=== PATIENT | female | born 1995 | race Caucasian/White ===

== ENCOUNTER 2019-02-23 10:24 | Emergency (ER) | payer SELFPAY ==
[2019-02-23] MEDS ORDERED: KETOROLAC 30 MG/ML INJ ONE (12:08)
[2019-02-23] MEDS ORDERED: ONDANSETRON 4 MG/2 ML VIAL ONE (12:08)
[2019-02-23] MEDS ORDERED: NA CHLORIDE 0.9% 1,000 ML ONE ×2 (12:08→13:41)
[2019-02-23 12:19] LABS: Hematocrit 39.4 % (36.0-45.0); RBC Red Blood Cell Count 4.46 M/uL (3.86-4.86)
[2019-02-23 12:20] LABS: Absolute Lymphocytes (CBC) 1.3 K/uL (0.7-4.9); Basophils % 0.4 % (0-1.3); Lymphocytes % 8.9 % (15.3-44.8); MPV 8.4 fL (7.6-11.3)
[2019-02-23 12:43] LABS: ALT/SGPT 20 U/L (12-78); AST/SGOT 20 U/L (15-37); Albumin 4.1 g/dL (3.4-5.0); Alkaline Phosphatase 77 U/L (45-117); BUN Blood Urea Nitrogen 8 mg/dL (7-18); Bicarbonate 22 mmol/L (21-32); Bilirubin Direct 0.1 mg/dL (0-0.2); Bilirubin Total 0.6 mg/dL (0.2-1.0); Glucose Level 95 mg/dL (74-106); Lipase 75 U/L (73-393); Potassium 3.5 mmol/L (3.5-5.1); Sodium Level 139 mmol/L (136-145)
--- NOTE | 2019-02-23 12:50 | RAD REPORT ---
EXAM DESCRIPTION: US - Transvaginal Study Probe - 02/23/2019 12:36 pm CLINICAL HISTORY: ABD PAIN Pelvic pain. COMPARISON: No comparisons FINDINGS: The uterus is normal in size, shape and echotexture. The uterus measures 7.6 x 4.4 x 3.4 c m. The endometrial stripe measures 8 mm, normal. Both ovaries are normal in size, shape and echotexture. The right ovary measures 3.3 x 2.7 x 2.0 cm. The left ovary measures 2.8 x 2.8 x 1.7 cm. No ovarian or parovarian lesions. No adnexal masses. Normal Doppler blood flow was demonstrated to both ovaries. No significant pelvic ascites. IMPRESSION: Unremarkable study.
[2019-02-23 12:56] LABS: Urine Bacteria NONE SEEN /HPF (<20); Urine Culture Reflex Order NOT NEEDED; Urine RBC NONE SEEN /HPF (NONE SEEN)
[2019-02-23 13:37] LABS: Urine Blood NEGATIVE (NEG); Urine Glucose NEGATIVE (NEG); Urine Protein TRACE (NEG)
--- NOTE | 2019-02-23 14:35 | RAD REPORT ---
EXAM DESCRIPTION: CT - Abdomen Pelvis W Contrast - 02/23/2019 2:14 pm CLINICAL HISTORY: lower abdomen pain COMPARISON: Pelvic ultrasound February 23. TECHNIQUE: Biphasic, helical CT imaging of the abdomen and pelvis was performed following 100 ml non -ionic IV contrast. Oral contrast was given. All CT scans are performed using dose optimization technique as appropriate and may include automated exposure control or mA/KV adjustment according to patient size. FINDINGS: No suspicious findings in the lung bases. The liver, spleen, and pancreas show no suspicious findings. Gallbladder and biliary tree are also wi thout suspicious finding. Symmetric renal function is seen with no hydronephrosis or suspicious renal mass. No pyelonephritis o r acute parenchymal process. No bladder abnormalities. No adrenal abnormalities. No dilated bowel loops or bowel wall thickening. Contrast extends into a normal diameter appendix. No free air or pneumatosis. A small amount of free fluid collects in the right posterior dependent port ion of the pelvis. Quantity is not outside of physiologic limits. Fluid has relatively high density b ut is still likely reactive fluid. Earlier ultrasound showed no ruptured or involuting cyst. Ovarian cyst etiology is still possible. This is not likely significant finding in the absence of any additio nal finding. No hernia, mass or bulky lymphadenopathy. No acute bone finding. L5 pars defects are present. IMPRESSION: Contrast enhanced CT abdomen and pelvis showing no significant or suspicious finding. Minimal free fluid in the pelvis is most likely reactive. Fluid from a leaking or ruptured ovarian cy st would be possible though no abnormal cyst seen on earlier ultrasound.
[2019-02-23] MEDS ORDERED: CEFTRIAXONE/SWI 1gm 1 GM/10 ML SYR ONE (15:11)
--- NOTE | 2019-02-23 15:11 | EDPHYS ---
Physician Documentation [facility] Name: Liseth Chow Age: 23 yrs Sex: Female : 1995 Arrival Date: 02/23/2019 Time: 10:27 Bed 15 Private MD: ED Physician Quentin Valentine HPI: 02/23 11:50 This 23 yrs old Female presents to ER via Ambulatory with complaints of cp Abdominal Pain. 11:50 The patient presents with abdominal pain in the lower abdomen, pelvic area. cp 11:50 Onset: The symptoms/episode began/occurred this morning. cp 11:50 The symptoms do not radiate. Associated signs and symptoms: Pertinent positives: nausea.cp 11:50 Severity of pain: in the emergency department the pain is unchanged despite home cp interventions. [employer]: 11:27 LMP 02/08/2019 aa5 Historical: - Allergies: 11:27 No Known Allergies; aa5 - PMHx: 11:27 Ovarian cyst; aa5 - PSHx: 11:27 None; aa5 - Immunization history:: Adult Immunizations up to date. - Social history:: Smoking status: Patient/guardian denies using tobacco. - Ebola Screening: : No symptoms or risks identified at this time. ROS: 12:00 Constitutional: Negative for body aches, chills, fever, poor PO intake. cp 12:00 Eyes: Negative for injury, pain, redness, and discharge. cp 12:00 ENT: Negative for drainage from ear(s), ear pain, sore throat, difficulty swallowing, difficulty handling secretions. 12:00 Cardiovascular: Negative for chest pain, palpitations. 12:00 Respiratory: Negative for cough, shortness of breath, wheezing. 12:00 Abdomen/GI: Positive for nausea, diarrhea, Negative for abdominal pain, vomiting, constipation, black/tarry stool, rectal bleeding. 12:00 Back: Negative for radiated pain. 12:00 : Positive for pelvic pain. 12:00 Skin: Negative for rash. 12:00 Neuro: Negative for altered mental status, dizziness, headache, weakness. 12:00 All other systems are negative. Exam: 14:30 Constitutional: The patient appears in no acute distress, alert, awake, non-toxic, well cp developed, well nourished. 14:30 Head/Face: Normocephalic, atraumatic. cp 14:30 Eyes: Periorbital structures: appear normal, Conjunctiva: normal, no exudate, no injection, Sclera: no appreciated abnormality, Lids and lashes: appear normal, bilaterally. 14:30 ENT: External ear(s): are unremarkable, Nose: is normal, Mouth: Lips: moist, Oral mucosa: pink and intact, moist, Posterior pharynx: is normal, airway is patent, no erythema, no exudate. 14:30 Chest/axilla: Inspection: normal, Palpation: is normal, no crepitus, no tenderness. 14:30 Cardiovascular: Rate: normal, Rhythm: regular. 14:30 Respiratory: the patient does not display signs of respiratory distress, Respirations: normal, no use of accessory muscles, no retractions, no splinting, no tachypnea, labored breathing, is not present, Breath sounds: are clear throughout, no decreased breath sounds, no stridor, no wheezing. 14:30 Abdomen/GI: Inspection: abdomen appears normal, Bowel sounds: active, all quadrants, Palpation: soft, in all quadrants, moderate abdominal tenderness, in the bilateral lower abdomen/adnexal area, rebound tenderness, is not appreciated, voluntary guarding, is elicited in the left lower abdomen/adnexal area. 14:30 Back: CVA tenderness, is absent. 14:30 : Pelvic Exam: Speculum exam: no bleeding is noted, os that is closed, bimanual exam reveals cervical motion tenderness, left adnexal tenderness, no adnexal mass on right, no adnexal mass on left, discharge, white, the nurse was present for the exam, Sexual behavior: the patient is sexually active. 14:30 Skin: no rash present. Vital Signs: 11:28 BP 135 / 82; Pulse 94; Resp 18 S; Temp 98.2(O); Pulse Ox 100% on R/A; Weight 61.23 kg aa5 (R); Height 5 ft. 1 in. (154.94 cm) (R); Pain 5/10; 13:11 Pulse 88; Resp 18; Pulse Ox 100% on R/A; Pain 2/10; mg2 14:16 BP 119 / 77; Pulse 75; Resp 18; Pulse Ox 100% on R/A; mg2 14:33 BP 118 / 77; Pulse 76; Resp 18; Pulse Ox 100% on R/A; mg2 11:28 Body Mass Index 25.51 (61.23 kg, 154.94 cm) aa5 MDM: 11:35 Patient medically screened. cp 12:00 Differential diagnosis: Ectopic , non-specific abd pain, Ovarian Torsion, cp Pelvic Inflammatory Disease, Tubal Ovarian Abcess, Ureterolithiasis, urinary tract infection. 15:24 Data reviewed: vital signs, nurses notes, lab test result(s), radiologic studies, CT cp scan, ultrasound, and as a result, I will discharge patient. 15:24 Counseling: I had a detailed discussion with the patient and/or guardian regarding: the cp historical points, exam findings, and any diagnostic results supporting the discharge/admit diagnosis, lab results, radiology results, the need for outpatient follow up, an OB/Gyne specialist, to return to the emergency department if symptoms worsen or persist or if there are any questions or concerns that arise at home. Response to treatment: the patient's symptoms have markedly improved after treatment, and as a result, I will discharge patient. 02/23 11:46 Order name: Basic Metabolic Panel; Complete Time: 13:01 02/23 11:46 Order name: CBC with Diff; Complete Time: 12:32 02/23 12:33 Interpretation: Normal except: WBC 14.3; RDW 15.4; MARY JO% 85.0; LYM% 8.9; NEUT A 12.1. 02/23 11:46 Order name: Creatinine for Radiology 02/23 11:46 Order name: Hepatic Function; Complete Time: 13:01 02/23 13:02 Interpretation: Normal except: GLOB 3.9. 02/23 11:46 Order name: Lipase; Complete Time: 13:01 cp 02/23 11:46 Order name: Urine Microscopic Only; Complete Time: 13:01 02/23 11:46 Order name: US Transvaginal Study (Probe) 02/23 12:33 Order name: CT Abd/Pelvis - PO and IV Contrast 02/23 12:46 Order name: Urine Dipstick--Ancillary (enter results); Complete Time: 15:03 em1 02/23 15:03 Interpretation: Normal except: UKET 4+. 02/23 12:46 Order name: Urine --Ancillary (enter results); Complete Time: 15:03 em1 02/23 14:46 Order name: GC (GONORR/CHLAMYDIA) Probe cp 02/23 14:46 Order name: Wet Prep cp 02/23 15:23 Order name: US EDMS 02/23 11:46 Order name: IV Saline Lock; Complete Time: 12:28 cp 02/23 11:46 Order name: Labs collected and sent; Complete Time: 12:28 cp 02/23 11:46 Order name: Urine Test (obtain specimen); Complete Time: 12:43 cp Administered Medications: 12:52 Drug: Zofran 4 mg Route: IVP; Site: right antecubital; mg2 14:39 Follow up: Response: No adverse reaction; Marked relief of symptoms mg2 12:52 Drug: TORadol 30 mg Route: IVP; Site: right antecubital; mg2 14:38 Follow up: Response: No adverse reaction; Marked relief of symptoms mg2 12:53 Drug: NS 0.9% 1000 ml Route: IV; Rate: 1 bolus; Site: right antecubital; mg2 14:39 Follow up: Response: No adverse reaction; IV Status: Completed infusion; IV Intake: mg2 1000ml 14:39 Drug: NS 0.9% 1000 ml Route: IV; Rate: 125 ml/hr; Site: right antecubital; mg2 15:32 Follow up: Response: No adverse reaction; IV Status: Order to discontinue infusion; IV mg2 Intake: 100ml 15:16 Drug: Rocephin - (cefTRIAXone) 1 grams Route: IVPB; Infused Over: 30 mins; Site: right mg2 antecubital; 15:31 Follow up: Response: No adverse reaction; IV Status: Completed infusion mg2 Disposition: 16:19 Co-signature as Attending Physician, Quentin Valentine MD. rn Disposition: 02/23/19 15:24 Discharged to Home. Impression: Abdominal and pelvic pain. - Condition is Stable. - Discharge Instructions: Abdominal Pain, Adult, Pelvic Pain, Female. - Prescriptions for Ibuprofen 800 mg Oral Tablet - take 1 tablet by ORAL route every 8 hours As needed take with food; 30 tablet. Doxycycline Hyclate 100 mg Oral Tablet - take 1 tablet by ORAL route every 12 hours; 20 tablet. Metronidazole 500 mg Oral Tablet - take 1 tablet by ORAL route every 8 hours; 30 tablet. - Medication Reconciliation Form, Thank You Letter, Antibiotic Education, Prescription Opioid Use, Work release form form. - Follow up: Ej Mckeon MD; When: 2 - 3 days; Reason: Worsening of condition. - Problem is new. - Symptoms have improved. Signatures: Dispatcher [employer] EDQuentin Kim MD MD rn Calderon, Audri, RN RN aa5 Chan Billings PA PA cp Herrera Massey RN RN mg2 Corrections: (The following items were deleted from the chart) 15:13 15:10 02/23/2019 15:10 Discharged to Home. Impression: Abdominal and pelvic pain. cp Condition is Stable. Forms are Medication Reconciliation Form, Thank You Letter, Antibiotic Education, Prescription Opioid Use. Follow up: Ej Mckeon; When: 2 - 3 days; Reason: Worsening of condition. Problem is new. Symptoms have improved. cp 15:53 15:24 02/23/2019 15:24 Discharged to Home. Impression: Abdominal and pelvic pain. mg2 Condition is Stable. Prescriptions for Ibuprofen 800 mg Oral Tablet - take 1 tablet by ORAL route every 8 hours As needed take with food; 30 tablet, Doxycycline Hyclate 100 mg Oral Tablet - take 1 tablet by ORAL route every 12 hours; 20 tablet, Metronidazole 500 mg Oral Tablet - take 1 tablet by ORAL route every 8 hours; 30 tablet. and Forms are Medication Reconciliation Form, Thank You Letter, Antibiotic Education, Prescription Opioid Use. Follow up: Ej Mckeon; When: 2 - 3 days; Reason: Worsening of condition. Problem is new. Symptoms have improved. cp
--- NOTE | 2019-02-23 15:11 | ER ---
Nurse's Notes [facility] Name: Liseth Chow Age: 23 yrs Sex: Female : 1995 Arrival Date: 02/23/2019 Time: 10:27 Bed 15 Private MD: Diagnosis: Abdominal and pelvic pain Presentation: 02/23 11:25 Presenting complaint: Patient states: lower abd pain that began this morning. Pt aa5 reports nausea,denies vomiting, denies diarrhea. Transition of care: patient was not received from another setting of care. Onset of symptoms was February 2019. Risk Assessment: Do you want to hurt yourself or someone else? Patient reports no desire to harm self or others. Initial Sepsis Screen: Does the patient meet any 2 criteria? No. Patient's initial sepsis screen is negative. Does the patient have a suspected source of infection? No. Patient's initial sepsis screen is negative. Care prior to arrival: None. 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 - Social history:: Smoking status: Patient/guardian denies using tobacco. - Ebola Screening: : No symptoms or risks identified at this time. Screenin:30 Abuse screen: Denies threats or abuse. Nutritional screening: No deficits noted. tw2 Tuberculosis screening: No symptoms or risk factors identified. Fall Risk None identified. Assessment: 11:36 General: Appears uncomfortable. tw2 11:39 General: Behavior is crying. Pain: Complains of pain in left femoral area and left tw2 inguinal area. Neuro: Level of Consciousness is awake, alert, obeys commands, Oriented to person, place, time, situation. Cardiovascular: Heart tones S1 S2 Patient's skin is warm and dry. Respiratory: Airway is patent. Respiratory: Breath sounds are clear bilaterally. GI: Abdomen is flat, Bowel sounds present X 4 quads. Abd is soft X 4 quads Reports diarrhea, nausea, Patient currently denies vomiting. : No signs and/or symptoms were reported regarding the genitourinary system. EENT: No signs and/or symptoms were reported regarding the EENT system. Derm: No signs and/or symptoms reported regarding the dermatologic system. Musculoskeletal: Range of motion: intact in all extremities. 13:10 Reassessment: patient informed about the plan for pelvic exam. she agreed. mg2 14:12 Reassessment: patient sent to ct scan. mg2 Vital Signs: 11:28 BP 135 / 82; Pulse 94; Resp 18 S; Temp 98.2(O); Pulse Ox 100% on R/A; Weight 61.23 kg aa5 (R); Height 5 ft. 1 in. (154.94 cm) (R); Pain 5/10; 13:11 Pulse 88; Resp 18; Pulse Ox 100% on R/A; Pain 2/10; mg2 14:16 BP 119 / 77; Pulse 75; Resp 18; Pulse Ox 100% on R/A; mg2 14:33 BP 118 / 77; Pulse 76; Resp 18; Pulse Ox 100% on R/A; mg2 11:28 Body Mass Index 25.51 (61.23 kg, 154.94 cm) aa5 ED Course: 10:27 Patient arrived in ED. mr 11:25 Arm band placed on. aa5 11:27 Triage completed. aa5 11:30 Citlaly Low RN is Primary Nurse. tw2 11:31 Bed in low position. Call light in reach. Pulse ox on. NIBP on. tw2 11:34 Chan Billings PA is PHCP. cp 11:34 Quentin Valentine MD is Attending Physician. cp 12:04 Report given to BRENNAN lynn. tw2 12:15 Inserted saline lock: 20 gauge in right antecubital area, using aseptic technique. mg2 Blood collected. 14:27 CT Abd/Pelvis - PO and IV Contrast In Process Unspecified. EDMS 14:33 Assist provider with pelvic exam: Set up pelvic tray. Performed by Chan BARILLAS mg2 Patient tolerated well. 15:06 Ej Mckeon MD is Referral Physician. cp 15:23 Ej Mckeon MD is Referral Physician. cp 15:50 IV discontinued, intact, bleeding controlled, No redness/swelling at site. Pressure mg2 dressing applied. Administered Medications: 12:52 Drug: Zofran 4 mg Route: IVP; Site: right antecubital; mg2 14:39 Follow up: Response: No adverse reaction; Marked relief of symptoms mg2 12:52 Drug: TORadol 30 mg Route: IVP; Site: right antecubital; mg2 14:38 Follow up: Response: No adverse reaction; Marked relief of symptoms mg2 12:53 Drug: NS 0.9% 1000 ml Route: IV; Rate: 1 bolus; Site: right antecubital; mg2 14:39 Follow up: Response: No adverse reaction; IV Status: Completed infusion; IV Intake: mg2 1000ml 14:39 Drug: NS 0.9% 1000 ml Route: IV; Rate: 125 ml/hr; Site: right antecubital; mg2 15:32 Follow up: Response: No adverse reaction; IV Status: Order to discontinue infusion; IV mg2 Intake: 100ml 15:16 Drug: Rocephin - (cefTRIAXone) 1 grams Route: IVPB; Infused Over: 30 mins; Site: right mg2 antecubital; 15:31 Follow up: Response: No adverse reaction; IV Status: Completed infusion mg2 Intake: 14:39 IV: 1000ml; Total: 1000ml. mg2 15:32 IV: 100ml; Total: 1100ml. mg2 Outcome: 15:10 Discharge ordered by MD. cp 15:24 Discharge ordered by MD. cp 15:50 Discharged to home ambulatory, with family. mg2 15:50 Condition: stable 15:50 Discharge instructions given to patient, family, Instructed on discharge instructions, follow up and referral plans. medication usage, Demonstrated understanding of instructions, follow-up care, medications, Prescriptions given X 3. 15:53 Patient left the ED. mg2 Signatures: Dispatcher [employer] Melody Rae PatrickAsuncion RN RN aa5 Chan Billings PA PA Citlaly Emmanuel RN RN tw2 Herrera Massey RN RN mg2 Corrections: (The following items were deleted from the chart) 11:40 11:36 General: Appears uncomfortable, tw2 tw2
[2019-02-26 16:20] LABS: C.trachomatis RNA,TMA Detected (Not Detected)
== END 2019-02-23 15:53 | disposition home or self-care (01) ==
LOC: ER 10:24
DX: R10.2 Pelvic and perineal pain (principal)
CPT/HCPCS: 36415; 74177; 76830; 80048; 80076; 81003; 81015; 81025; 83690; 85025; 87210; 87490; 87590; 96361; 96374; 96375; 99284; J0696; J2405; J7030; Q9967

== ENCOUNTER 2019-02-24 19:54 | Emergency (ER) | payer SELFPAY ==
--- OUTSIDE RECORDS SUMMARY | 2019-02-24 19:57 | XMS REPORT | Clinical Summary ---
:1995 Author Organization [facility] Address [address] [place] [address] Care Team Providers Name Role Phone Unavailable Primary Care Provider Unavailable Allergies No Known Allergies Medications No known medications Active Problems Not on file Social History Tobacco Use Types Packs/Day Years Used Date Never Smoker Alcohol Use Drinks/Week oz/Week Comments No Sex Assigned at Date Recorded Not on file Job Start Date Occupation Industry Not on file Not on file Not on file Travel History Travel Start Travel End No recent travel history available. 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
--- OUTSIDE RECORDS SUMMARY | 2019-02-24 19:57 | XMS REPORT | Summary of Care ---
:1995 Author Organization [facility] Address [address] [place] [address]- Encounter HQ Dankntr_teresa(FIN) [id number] Date(s): 01/04/17 - 01/04/[address] Professional Services provided by The [facility] [place] [address]- Discharge Diagnosis: Acute depression Discharge Diagnosis: Suicidal ideation Discharge Disposition: DC/TF To Psych Hosp Attending Physician: Buddy Rollins MD Vital Signs Most recent to oldest 1 2 3 [Reference Range]: Height 154.94 cm (01/04/17 4:25 AM) Temperature Oral [96.4-99.1 98.2 DegF 98.0 DegF DegF] (01/04/17 2:24 PM) (01/04/17 4:25 AM) Blood Pressure [90-140/60-90 111/56 mmHg 97/52 mmHg 99/46 mmHg mmHg] (01/04/17 2:24 PM) (01/04/17 11:44 AM) (01/04/17 10:08 AM) Respiratory Rate [14-20 16 BRMIN 18 BRMIN 18 BRMIN BRMIN] (01/04/17 2:24 PM) (01/04/17 11:44 AM) (01/04/17 10:08 AM) Peripheral Pulse Rate [60-100 98 bpm 76 bpm 88 bpm bpm] (01/04/17 2:24 PM) (01/04/17 11:44 AM) (01/04/17 10:08 AM) Weight 59.091 kg (01/04/17 4:25 AM) Body Mass Index 24.61 m2 (01/04/17 4:25 AM) Problem List Condition Effective Dates Status Health Status Informant Suicide attempt(Confirmed) Active Allergies, Adverse Reactions, Alerts Substance Reaction Severity Status NKDA Active Medications Sodium Chloride 0.9% (Bolus) IV 1,000 mL, 1000 ml/hr, Infuse Over: 1 hr, Route: IV, 1,000, Drug form: INJ, ONCE , Priority: STAT, Dosing Weight 59.091 kg, Start date: 01/04/17 5:22:00 CDT, Duration: 1 doses or times, Stop date: 01/04/17 5:22:00 CDT Start Date: 01/04/17 Stop Date: 01/04/17 Status: Completed Results ELECTROLYTES Most recent to oldest [Reference Range]: 1 Sodium Lvl [135-145 mEq/L] 145 mEq/L (01/04/17 5:50 AM) Potassium Lvl [3.5-5.1 mEq/L] 3.7 mEq/L (01/04/17 5:50 AM) Chloride Lvl [95-109 mEq/L] 110 mEq/L *HI* (01/04/17 5:50 AM) CO2 [24-32 mEq/L] 22 mEq/L *LOW* (01/04/17 5:50 AM) AGAP [10.0-20.0 mEq/L] 16.7 mEq/L (01/04/17 5:50 AM) CHEM PANEL Most recent to oldest [Reference Range]: 1 Creatinine Lvl [0.50-1.40 mg/dL] 0.67 mg/dL (01/04/17 5:50 AM) eGFR 126 mL/min/1.73m2 1 *NA* (01/04/17 5:50 AM) BUN [7-22 mg/dL] 7 mg/dL (01/04/17 5:50 AM) Glucose Lvl [70-99 mg/dL] 97 mg/dL (01/04/17 5:50 AM) Total Protein [6.4-8.4 g/dL] 7.6 g/dL (01/04/17 5:50 AM) Albumin Lvl [3.5-5.0 g/dL] 4.3 g/dL (01/04/17 5:50 AM) Globulin [2.7-4.2 g/dL] 3.3 g/dL (01/04/17 5:50 AM) A/G Ratio [0.7-1.6] 1.3 (01/04/17 5:50 AM) Calcium Lvl [8.5-10.5 mg/dL] 8.7 mg/dL (01/04/17 5:50 AM) ALT [0-65 unit/L] 23 unit/L (01/04/17 5:50 AM) AST [0-37 unit/L] 21 unit/L (01/04/17 5:50 AM) Alk Phos [39-136 unit/L] 72 unit/L (01/04/17 5:50 AM) Bili Total [0.2-1.3 mg/dL] 0.2 mg/dL (01/04/17 5:50 AM) Bili Direct [0.0-0.3 mg/dL] 0.1 mg/dL (01/04/17 5:50 AM) Bili Indirect [0.0-1.0 mg/dL] 0.1 mg/dL (01/04/17 5:50 AM) 1Result Comment: The eGFR is calculated using the CKD-EPI formula. In most young , healthy individualsthe eGFR will be >90 mL/min/1.73m2. The eGFR declines with age. An eGFR of 60-89 may be normal in some populations, particularly the elderly, for whom the CKD-EPI formula has not been extensively validated. Use of the eGFR is not recommended in the following populations: Individuals with unstable creatinine concentrations, including patients and those with serious co-morbid conditions. Patients with extremes in muscle mass or diet. The data above are obtained from the National Kidney Disease Education Program ( NKDEP) which additionally recommends that when the eGFR is used in patients with extremes of body mass index for purposesof drug dosing, the eGFR should be multiplied by the estimated BMI.DRUG SCREEN Most recent to oldest [Reference Range]: 1 U Amph Scr [Negative] Negative *NA* (01/04/17 8:23 AM) U Krista Scr [Negative] Negative *NA* (01/04/17 8:23 AM) U Benzodia Scr [Negative] Negative *NA* (01/04/17 8:23 AM) U Cocaine Scr [Negative] Negative *NA* (01/04/17 8:23 AM) U Opiate Scr [Negative] Negative *NA* (01/04/17 8:23 AM) U Phencyc Scr [Negative] Negative *NA* (01/04/17 8:23 AM) U Cannab Scr [Negative] Negative *NA* (01/04/17 8:23 AM) UDS Note See Note *NA* (01/04/17 8:23 AM) TOXICOLOGY Most recent to oldest [Reference Range]: 1 Acetaminoph Lvl [10-20] <2 (01/04/17 5:50 AM) Salicylate Lvl [0.0-30.0 mg/dL] 1.8 mg/dL (01/04/17 5:50 AM) Etoh (%) .175 % *NA* (01/04/17 5:50 AM) Ethanol Lvl 175 mg/dL *NA* (01/04/17 5:50 AM) ENDOCRINOLOGY Most recent to oldest [Reference Range]: 1 S Preg [Negative] Negative (01/04/17 5:50 AM) URINE AND STOOL Most recent to oldest [Reference Range]: 1 UA Turbidity [Clear] Clear (01/04/17 8:23 AM) UA Color [Yellow] Yellow *NA* (01/04/17 8:23 AM) UA pH [5.0-8.0] 6.0 (01/04/17 8:23 AM) UA Spec Grav [<=1.030] 1.025 (01/04/17 8:23 AM) UA Glucose [Negative mg/dL] Negative mg/dL (01/04/17 8:23 AM) UA Blood [Negative] Negative (01/04/17 8:23 AM) UA Ketones [Negative mg/dL] 15 mg/dL *ABN* (01/04/17 8:23 AM) UA Protein [Negative mg/dL] Negative mg/dL (01/04/17 8:23 AM) UA Urobilinogen [0.1-1.0 EU/dL] 0.2 EU/dL (01/04/17 8:23 AM) UA Bili [Negative] Negative *NA* (01/04/17 8:23 AM) UA Leuk Est [Negative] Negative (01/04/17 8:23 AM) UA Nitrite [Negative] Negative (01/04/17 8:23 AM) UA WBC [None Seen /HPF] 0-2 /HPF (01/04/17 8:23 AM) UA RBC [0-2 /HPF] 0-2 /HPF (01/04/17 8:23 AM) UA Bacteria [None Seen /HPF] Few /HPF (01/04/17 8:23 AM) UA Sq Epi [Few /LPF] Few /LPF (01/04/17 8:23 AM) HEMATOLOGY Most recent to oldest [Reference Range]: 1 WBC [3.7-10.4 K/CMM] 6.3 K/CMM (01/04/17 5:50 AM) RBC [4.20-5.40 M/CMM] 4.21 M/CMM (01/04/17 5:50 AM) Hgb [12.0-16.0 g/dL] 12.8 g/dL (01/04/17 5:50 AM) Hct [36.0-48.0 %] 38.0 % (01/04/17 5:50 AM) MCV [80.0-98.0 fL] 90.2 fL (01/04/17 5:50 AM) MCH [27.0-31.0 pg] 30.4 pg (01/04/17 5:50 AM) MCHC [32.0-36.0 g/dL] 33.7 g/dL (01/04/17 5:50 AM) RDW [11.5-14.5 %] 14.6 % *HI* (01/04/17 5:50 AM) Platelet [133-450 K/CMM] 287 K/CMM (01/04/17 5:50 AM) MPV [7.4-10.4 fL] 8.1 fL (01/04/17 5:50 AM) Segs [45.0-75.0 %] 65.4 % (01/04/17 5:50 AM) Lymphocytes [20.0-40.0 %] 30.3 % (01/04/17 5:50 AM) Monocytes [2.0-12.0 %] 3.7 % (01/04/17 5:50 AM) Eosinophils [0.0-4.0 %] 0.2 % (01/04/17 5:50 AM) Basophils [0.0-1.0 %] 0.4 % (01/04/17 5:50 AM) Segs-Bands # [1.5-8.1 K/CMM] 4.1 K/CMM (01/04/17 5:50 AM) Lymphocytes # [1.0-5.5 K/CMM] 1.9 K/CMM (01/04/17 5:50 AM) Monocytes # [0.0-0.8 K/CMM] 0.2 K/CMM (01/04/17 5:50 AM) Immunizations No data available for this section Procedures No data available for this section Social History Social History Type Response Substance Abuse Use: None. Smoking Status Never smoker; Exposure to Tobacco Smoke None; Cigarette Smoking Last 365 Days No; Reg Smoking Cessation Counseling Yes Assessment and Plan No data available for this section
--- OUTSIDE RECORDS SUMMARY | 2019-02-24 19:57 | XMS REPORT | Summary of Care ---
:1995 Author Organization [facility] Address [address] [place], [place] [address]- Encounter HQ Encntr_alias(FIN) [id number] Date(s): 04/17/16 - 04/17/[address] Professional Services provided by [facility] [place] [address]- Discharge Diagnosis: Abdominal pain, LLQ Discharge Disposition: Home or Self Care Attending Physician: Martin Donald MD Vital Signs Most recent to oldest [Reference Range]: 1 2 Height 154.94 cm (04/17/16 5:09 PM) Temperature Oral [96.4-99.1 DegF] 98.1 DegF 98.6 DegF (04/17/16 6:53 PM) (04/17/16 5:09 PM) Blood Pressure [90-140/60-90 mmHg] 99/66 mmHg 119/76 mmHg (04/17/16 6:53 PM) (04/17/16 5:09 PM) Respiratory Rate [14-20 BRMIN] 18 BRMIN 18 BRMIN (04/17/16 6:53 PM) (04/17/16 5:09 PM) Peripheral Pulse Rate [60-100 bpm] 82 bpm 97 bpm (04/17/16 6:53 PM) (04/17/16 5:09 PM) Weight 61.364 kg (04/17/16 5:09 PM) Body Mass Index 25.56 m2 (04/17/16 5:09 PM) Problem List No data available for this section Allergies, Adverse Reactions, Alerts Substance Reaction Severity Status NKDA Active Medications No data available for this section Results URINE CHEM Most recent to oldest [Reference Range]: 1 U Preg [Negative] Negative (04/17/16 5:45 PM) URINE AND STOOL Most recent to oldest [Reference Range]: 1 UA Turbidity [Clear] Slight Cloudy (04/17/16 5:45 PM) UA Color [Yellow] Yellow *NA* (04/17/16 5:45 PM) UA pH [5.0-8.0] 6.5 (04/17/16 5:45 PM) UA Spec Grav [<=1.030] 1.020 (04/17/16 5:45 PM) UA Glucose [Negative mg/dL] Negative mg/dL (04/17/16 5:45 PM) UA Blood [Negative] Negative (04/17/16 5:45 PM) UA Ketones [Negative mg/dL] Trace mg/dL *ABN* (04/17/16 5:45 PM) UA Protein [Negative mg/dL] Negative mg/dL (04/17/16 5:45 PM) UA Urobilinogen [0.1-1.0 EU/dL] 0.2 EU/dL (04/17/16 5:45 PM) UA Bili [Negative] Negative *NA* (04/17/16 5:45 PM) UA Leuk Est [Negative] Negative (04/17/16 5:45 PM) UA Nitrite [Negative] Negative (04/17/16 5:45 PM) UA WBC [None Seen /HPF] 3-5 /HPF (04/17/16 5:45 PM) UA RBC [0-2 /HPF] 0-2 /HPF (04/17/16 5:45 PM) UA Bacteria [None Seen /HPF] Many /HPF (04/17/16 5:45 PM) UA Sq Epi [Few /LPF] Moderate /LPF *ABN* (04/17/16 5:45 PM) UA Mucus [None Seen] None Seen (04/17/16 5:45 PM) Micro? Performed (04/17/16 5:45 PM) Immunizations No data available for this section Procedures No data available for this section Social History Social History Type Response Smoking Status Never smoker; Exposure to Tobacco Smoke None; Cigarette Smoking Last 365 Days No; Reg Smoking Cessation Counseling Yes Assessment and Plan No data available for this section
--- OUTSIDE RECORDS SUMMARY | 2019-02-24 19:57 | XMS REPORT | Continuity of Care Document ---
:1995 Author Organization [employer] Care Team Providers Name Role Phone [employer] Unavailable Unavailable Problems Problem Status Onset Classification Date Comments Source Date Reported Major 01/07/2017 [facility] depressive 7 Medical disorder, Center single episode, unspecified Suicidal 01/07/2017 [facility] ideations 7 Medical Center SUICIDAL Active [facility] THOUGHTS Medical Center Discharge 04/20/2016 [facility] Diagnosis: 6 Medical Abdominal pain, Center LLQ NAUESA/VOIMTING Active [facility] /PELVIC PAIN 6 Medical Center Suicide attempt Active Problem 01/07/2017 [facility] (disorder) [facility] Medications Medication Details Route Status Patient Ordering Order Source Instructions Provider Date Sodium 1,000 mL, Inactive 01/05/20 [facility] Chloride 1000 17 [facility] 0.154 MEQ/ML ml/hr, Center Injectable Infuse Solution Over: 1 hr, Route: IV, 1,000, Drug form: INJ, ONCE, Priority: STAT, Dosing Weight 59.091 kg, Start date: 01/04/17 5:22:00 CDT, Duration: 1 doses or times, Stop date: 01/04/17 5:22:00 CDT Allergies, Adverse Reactions, Alerts No Known Medication Allergies Immunizations No Data Provided for This Section Results Order Name Results Value Reference Date Interpretation Comments Source Range DRUG SCREEN UDS Note See Note 01/04 [place] *NA* /2016 Medical (01/04/17 8:23 AM) Center DRUG SCREEN U Phencyc Scr Negative Negative 01/04 [place] *NA* Medical (01/04/17 8:23 AM) Center DRUG SCREEN U Opiate Scr Negative Negative 01/04 [place] *NA* Medical (01/04/17 8:23 AM) Center DRUG SCREEN U Benzodia Negative Negative 01/04 [place] Scr *NA* Medical (01/04/17 8:23 AM) Center DRUG SCREEN U Cocaine Scr Negative Negative 01/04 [place] *NA* /2017 [facility] (01/04/17 8:23 AM) Center DRUG SCREEN U Cannab Scr Negative Negative 01/04 [place] *NA* [facility] (01/04/17 8:23 AM) Center DRUG SCREEN U Amph Scr Negative Negative 01/04 [place] *NA* [facility] (01/04/17 8:23 AM) Center DRUG SCREEN U Krista Scr Negative Negative 01/04 [facility] *NA* [facility] (01/04/17 8:23 AM) [place] URINE AND UA Nitrite Negative Negative 01/04 [facility] (01/04/17 8:23 AM) /2016 [facility] URINE AND UA Leuk Est Negative Negative 01/04 [facility] (01/04/17 8:23 AM) /2016 [facility] URINE AND UA Blood Negative Negative 01/04 [facility] (01/04/17 8:23 AM) /2016 [facility] URINE AND UA 0.2 0.1 - 1.0 01/04 [facility] Urobilinogen /2016 [facility] URINE AND UA Color Yellow Yellow 01/04 [facility] STOOL *NA* [facility] (01/04/17 8:23 AM) [place] URINE AND UA Turbidity Clear Clear 01/04 [facility] (01/04/17 8:23 AM) /2016 [facility] URINE AND UA Glucose Negative Negative 01/04 [facility] mg/dL mg/dL [facility] URINE AND UA Ketones 15 mg/dL Negative 01/04 [facility] mg/dL /2016 [facility] URINE AND UA Bili Negative Negative 01/04 [facility] STOOL *NA* [facility] (01/04/17 8:23 AM) [place] URINE AND UA Spec Grav 1.025 <=1.030 01/04 [facility] STOOL /2016 [facility] URINE AND UA pH 6.0 5.0 - 8.0 01/04 [facility] STOOL /2016 [facility] [place] URINE AND UA Protein Negative Negative 01/04 [facility] mg/dL mg/dL [facility] URINE AND UA Bacteria Few /HPF None Seen 01/04 [facility] STOOL /HPF /2016 [facility] [place] URINE AND UA WBC 0-2 /HPF None Seen 01/04 [facility] STOOL /HPF /2016 [facility] [place] URINE AND UA Sq Epi Few /LPF Few /LPF 01/04 [facility] /2016 [facility] [place] URINE AND UA RBC 0-2 /HPF 0 - 2 01/04 [facility] /2017 [facility] CHEM PANEL Bili Direct 0.1 0.0 - 0.3 01/[address] CHEM PANEL Alk Phos 72 39 - 136 01/04 [facility]2016 [facility] CHEM PANEL Total Protein 7.6 6.4 - 8.4 01/[address] CHEM PANEL Albumin Lvl 4.3 3.5 - 5.0 01/04 2016 [facility] CHEM PANEL ALT 23 0 - 65 01/04 [facility]2016 [facility] CHEM PANEL AST 21 0 - 37 01/[address] CHEM PANEL Bili Total 0.2 0.2 - 1.3 01/04 [facility]2016 [facility] CHEM PANEL Globulin 3.3 2.7 - 4.2 01/[address] CHEM PANEL A/G Ratio 1.3 0.7 - 1.6 01/[address] CHEM PANEL Bili Indirect 0.1 0.0 - 1.0 01/[address] CHEM PANEL eGFR 126 01/04 Result Comment: The Medical eGFR is Center calculated using the CKD-EPI formula. In most young, healthy individuals the eGFR will be >90 mL/min/1.73m2 . The eGFR declines with age. An eGFR of 60-89 may be normal in some populations, particularly the elderly, for whom the CKD-EPI formula has not been extensively validated. Use of the eGFR is not recommended in the following populations:< br/>
Linda viduals with unstable creatinine concentration s, including patients and those with serious co-morbid conditions.<b r/>
Patie nts with extremes in muscle mass or diet.

The data above are obtained from the National Kidney Disease Education Program (NKDEP) which additionally recommends that when the eGFR is used in patients with extremes of body mass index for purposes of drug dosing, the eGFR should be multiplied by the estimated BMI. CHEM PANEL Calcium Lvl 8.7 8.5 - 10.5 01/04 [facility] CHEM PANEL Chloride Lvl 110 95 - 109 01/[address] CHEM PANEL Glucose Lvl 97 70 - 99 01/[address] CHEM PANEL CO2 22 24 - 32 01/[address] Center CHEM PANEL Potassium Lvl 3.7 3.5 - 5.1 01/04 [facility] CHEM PANEL Creatinine 0.67 0.50 - 01/04 [facility] Lvl 1.40 [facility] CHEM PANEL Sodium Lvl 145 135 - 145 01/04 [facility] CHEM PANEL BUN 7 7 - 22 01/04 [facility] CHEM PANEL AGAP 16.7 10.0 - 01/04 [place] 20.0 [facility] ENDOCRINOLO S Preg Negative Negative 01/04 [facility] GY (01/04/17 5:50 AM) [facility] HEMATOLOGY Segs 65.4 45.0 - 01/04 [place] 75.0 [facility] HEMATOLOGY Lymphocytes 30.3 20.0 - 01/04 [place] 40.0 [facility] HEMATOLOGY Monocytes 3.7 2.0 - 12.0 01/04 [facility] HEMATOLOGY Eosinophils 0.2 0.0 - 4.0 01/04 [facility] HEMATOLOGY Basophils 0.4 0.0 - 1.0 01/04 [facility] HEMATOLOGY Segs-Bands # 4.1 1.5 - 8.1 01/04 [facility] HEMATOLOGY Lymphocytes # 1.9 1.0 - 5.5 01/04 [facility] HEMATOLOGY Monocytes # 0.2 0.0 - 0.8 01/04 [facility] HEMATOLOGY Platelet 287 133 - 450 01/04 [facility] HEMATOLOGY MPV 8.1 7.4 - 10.4 01/04 [facility] HEMATOLOGY Hgb 12.8 12.0 - 01/04 [place] 16.0 [facility] HEMATOLOGY RDW 14.6 11.5 - 01/04 [place] 14.5 [facility] HEMATOLOGY RBC 4.21 4.20 - 01/04 [place] 5.40 [facility] HEMATOLOGY WBC 6.3 3.7 - 10.4 01/04 [facility] HEMATOLOGY MCHC 33.7 32.0 - 01/04 [place] 36.0 [facility] HEMATOLOGY MCH 30.4 27.0 - 01/04 [place] 31.0 [facility] HEMATOLOGY MCV 90.2 80.0 - 01/04 [place] 98.0 [facility] HEMATOLOGY Hct 38.0 36.0 - 01/04 [place] 48.0 [facility] TOXICOLOGY Salicylate 1.8 0.0 - 30.0 01/04 [facility] Lvl /2016 [facility] TOXICOLOGY Ethanol Lvl 175 01/04 [facility] TOXICOLOGY Etoh (%) 0.175 01/04 [facility] TOXICOLOGY Acetaminoph <2 10 - 20 01/04 [facility] (01/04/17 5:50 AM) /2016 [facility] URINE AND UA Nitrite Negative Negative 04/17 [facility] STOOL (04/17/16 5:45 PM) /2015 [facility] URINE AND UA Leuk Est Negative Negative 04/17 [facility] (04/17/16 5:45 PM) /2015 [facility] URINE AND UA 0.2 0.1 - 1.0 04/17 [facility] Urobilinogen /2015 [facility] URINE AND UA Blood Negative Negative 04/17 [facility] (04/17/16 5:45 PM) /2015 [facility] URINE AND UA Bili Negative Negative 04/17 [facility] *NA* /2015 [facility] (04/17/16 5:45 PM) [facility] URINE AND UA Ketones Trace Negative 04/17 [facility] mg/dL mg/dL [facility] URINE AND UA Spec Grav 1.020 <=1.030 04/17 [facility] URINE AND UA pH 6.5 5.0 - 8.0 04/17 [facility] /2015 [facility] URINE AND UA Protein Negative Negative 04/17 [facility] mg/dL mg/dL [facility] URINE AND UA Glucose Negative Negative 04/17 [facility] mg/dL mg/dL [facility] URINE AND UA Color Yellow Yellow 04/17 [facility] STOOL *NA* /2015 [facility] (04/17/16 5:45 PM) [place] URINE AND UA Turbidity Slight Cloudy Clear 04/17 [facility] (04/17/16 5:45 PM) /2015 [facility] URINE AND UA Bacteria Many /HPF None Seen 04/17 [facility] STOOL /HPF /2015 [facility] URINE AND UA WBC 3-5 /HPF None Seen 04/17 [facility] STOOL /HPF /2015 [facility] URINE AND UA RBC 0-2 /HPF 0 - 2 04/17 [facility] STOOL /2015 [facility] URINE AND UA Mucus None Seen None Seen 04/17 [facility] (04/17/16 5:45 PM) [facility] URINE AND Micro? Performed 04/17 [facility] STOOL (04/17/16 5:45 PM) /2015 [facility] URINE AND UA Sq Epi Moderate Few /LPF 04/17 [facility] STOOL /LPF /2015 [facility] URINE CHEM U Preg Negative Negative 04/17 [facility] (04/17/16 5:45 PM) [facility] Pathology Reports No Data Provided for This Section Diagnostic Reports No Data Provided for This Section Consultation Notes No Data Provided for This Section Discharge Summaries No Data Provided for This Section History and Physicals No Data Provided for This Section Vital Signs Vital Sign Value Date Comments Source Heart Rate 98 01/04/2017 [facility] Respitory Rate 16 01/04/2017 [facility] Systolic (mm Hg) 111 01/04/2017 [facility] Diastolic (mm Hg) 56 01/04/2017 [facility] Temperature Oral (F) 98.2 F 01/04/2017 [facility] Systolic (mm Hg) 97 01/04/2017 [facility] Diastolic (mm Hg) 52 01/04/2017 [facility] Respitory Rate 18 01/04/2017 [facility] Heart Rate 76 01/04/2017 [facility] Systolic (mm Hg) 99 01/04/2017 [facility] Diastolic (mm Hg) 46 01/04/2017 [facility] Heart Rate 88 01/04/2017 [facility] Respitory Rate 18 01/04/2017 [facility] Height 154.94 cm 01/04/2017 [facility] BMI Calculated 24.61 01/04/2017 [facility] Weight 59.091 01/04/2017 [facility] Temperature Oral (F) 98.0 F 01/04/2017 [facility] Heart Rate 82 04/17/2016 [facility] Temperature Oral (F) 98.1 F 04/17/2016 [facility] Respitory Rate 18 04/17/2016 [facility] Systolic (mm Hg) 99 04/17/2016 [facility] Diastolic (mm Hg) 66 04/17/2016 [facility] Systolic (mm Hg) 119 04/17/2016 [facility] Diastolic (mm Hg) 76 04/17/2016 [facility] Temperature Oral (F) 98.6 F 04/17/2016 [facility] Respitory Rate 18 04/17/2016 [facility] Heart Rate 97 04/17/2016 [facility] BMI Calculated 25.56 04/17/2016 [facility] Weight 61.364 04/17/2016 [facility] Height 154.94 cm 04/17/2016 [facility] Encounters Location Location Encounter Encounter Reason Attending ADM DC Status Source Details Type Number For Provider Date Date Visit [facility] Emergency [id number] Martin 04/17 04/18 [facility] Mata Donald /2015 [facility] [id number] Buddy 01/04 01/04 [facility] Mata Rollins /2016 [facility] [id number] RYAN 01/04 Active [facility] Mata Procedures No Data Provided for This Section Assessment and Plan No Data Provided for This Section Plan of Care No Data Provided for This Section Social History Social History Date Source Social History TypeResponse 01/05/2017 [facility] Substance Abuse Use: None. Smoking Status Never smoker; Exposure to Tobacco Smoke None; Cigarette Smoking Last 365 Days No; Reg Smoking Cessation Counseling Yes Family History No Data Provided for This Section Advance Directives No Data Provided for This Section Functional Status No Data Provided for This Section
[2019-02-24] MEDS ORDERED: KETOROLAC 30 MG/ML INJ ONE (20:34)
[2019-02-24] MEDS ORDERED: ONDANSETRON 4 MG/2 ML VIAL ONE (20:34)
[2019-02-24] MEDS ORDERED: NA CHLORIDE 0.9% 1,000 ML ONE (20:36)
[2019-02-24 21:04] LABS: Absolute Lymphocytes (CBC) 1.9 K/uL (0.7-4.9); Basophils % 0.7 % (0-1.3); Hematocrit 38.2 % (36.0-45.0); Lymphocytes % 15.9 % (15.3-44.8); MPV 8.3 fL (7.6-11.3); RBC Red Blood Cell Count 4.26 M/uL (3.86-4.86)
[2019-02-24 21:17] LABS: BUN Blood Urea Nitrogen 4 mg/dL (7-18); Bicarbonate 24 mmol/L (21-32); Glucose Level 80 mg/dL (74-106); Potassium 3.4 mmol/L (3.5-5.1); Sodium Level 139 mmol/L (136-145)
--- NOTE | 2019-02-24 22:03 | ER ---
Nurse's Notes [facility] Name: Liseth Chow Age: 23 yrs Sex: Female : 1995 Arrival Date: 02/24/2019 Time: 19:55 Bed 18 Private MD: Diagnosis: Nausea with vomiting, unspecified;Diarrhea, unspecified;Lower abdominal pain, unspecified Presentation: 02/24 20:06 Presenting complaint: Patient states: "I came here yesterday with severe stomach pain, lp1 nausea and explosive diarrhea but now I can't hold anything down"; States diarrhea improved but is now vomiting; Pain to LLQ of abdomen. Transition of care: patient was not received from another setting of care. Onset of symptoms was February 24, 2019. Risk Assessment: Do you want to hurt yourself or someone else? Patient reports no desire to harm self or others. Initial Sepsis Screen: Does the patient meet any 2 criteria? No. Patient's initial sepsis screen is negative. Does the patient have a suspected source of infection? No. Patient's initial sepsis screen is negative. Care prior to arrival: None. 20:06 Method Of Arrival: Ambulatory lp1 20:06 Acuity: MARÍA 3 lp1 Triage Assessment: 20:26 General: Appears in no apparent distress. uncomfortable, Behavior is calm, cooperative, cc3 appropriate for age. Pain: Complains of pain in lower abdomen. GI: Reports lower abdominal pain, vomiting, since yesterday. 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 - Social history:: Smoking status: Patient uses tobacco products, denies chronic smoking, but will smoke occasionally. - Ebola Screening: : No symptoms or risks identified at this time. Screenin:11 Abuse screen: Denies threats or abuse. Denies injuries from another. Nutritional lp1 screening: No deficits noted. Tuberculosis screening: No symptoms or risk factors identified. Fall Risk None identified. Assessment: 20:26 General: Appears in no apparent distress. uncomfortable, Behavior is calm, cooperative, cc3 appropriate for age. Pain: Complains of pain in lower abdomen. Neuro: Level of Consciousness is awake, alert, obeys commands, Oriented to person, place, time, situation, Appropriate for age. Cardiovascular: Denies chest pain, Capillary refill < 3 seconds Patient's skin is warm and dry. Respiratory: Airway is patent Respiratory effort is even, unlabored, Respiratory pattern is regular, symmetrical. GI: Abdomen is round non-distended. : No signs and/or symptoms were reported regarding the genitourinary system. EENT: No signs and/or symptoms were reported regarding the EENT system. Derm: Skin is intact, is healthy with good turgor, Skin is pink, warm \\T\\ dry. normal. Musculoskeletal: Circulation, motion, and sensation intact. Range of motion: intact in all extremities. 21:18 Reassessment: Patient appears in no apparent distress at this time. Patient and/or cc3 family updated on plan of care and expected duration. Pain level reassessed. Patient is alert, oriented x 3, equal unlabored respirations, skin warm/dry/pink. Patient states feeling better. Patient states symptoms have improved. 22:10 Reassessment: Patient appears in no apparent distress at this time. Patient and/or cc3 family updated on plan of care and expected duration. Pain level reassessed. Patient is alert, oriented x 3, equal unlabored respirations, skin warm/dry/pink. CRISTIAN Negro discharged the patient home with prescription given. IV cannula removed and patient left ER vitally stable and ambulatory. No valuables left in the patient's room. Patient denies pain at this time. Patient states feeling better. Patient states symptoms have improved. Vital Signs: 20:09 BP 132 / 76; Pulse 82; Resp 18; Temp 97.6(O); Pulse Ox 100% on R/A; Weight 61.23 kg lp1 (R); Height 5 ft. 1 in. (154.94 cm); Pain 6/10; 21:13 BP 124 / 72; Pulse 73; Resp 17 S; Pulse Ox 99% on R/A; cc3 22:00 BP 110 / 73; Pulse 82; Resp 16 S; Pulse Ox 100% on R/A; cc3 20:09 Body Mass Index 25.51 (61.23 kg, 154.94 cm) lp1 ED Course: 19:55 Patient arrived in ED. mr 19:58 Emily [facility] FNP-C is [facility]. kb 19:58 David Gregg MD is Attending Physician. kb 20:08 Triage completed. lp1 20:09 Arm band placed on left wrist. lp1 20:26 Linda Valente is Primary Nurse. cc3 20:26 Patient has correct armband on for positive identification. Placed in gown. Bed in low cc3 position. Call light in reach. Side rails up X 1. Pulse ox on. NIBP on. 20:45 Inserted saline lock: 20 gauge in left antecubital area, using aseptic technique. Blood cc3 collected. 22:10 No provider procedures requiring assistance completed. IV discontinued, intact, cc3 bleeding controlled, No redness/swelling at site. Pressure dressing applied. Administered Medications: 20:45 Drug: NS 0.9% 1000 ml Route: IV; Rate: 1000 ml; Site: left antecubital; cc3 21:34 Follow up: Response: No adverse reaction; IV Status: Completed infusion; IV Intake: cc3 1000ml 20:45 Drug: TORadol - Ketorolac 15 mg Route: IVP; Site: left antecubital; cc3 21:34 Follow up: Response: No adverse reaction; Pain is decreased cc3 20:48 Drug: Zofran 4 mg Route: IVP; Site: left antecubital; cc3 21:34 Follow up: Response: No adverse reaction; Nausea is decreased cc3 Intake: 21:34 IV: 1000ml; Total: 1000ml. cc3 Outcome: 21:58 Discharge ordered by . kb 22:10 Discharged to home ambulatory, with family. cc3 22:10 Condition: stable 22:10 Discharge instructions given to patient, Instructed on discharge instructions, follow up and referral plans. medication usage, Demonstrated understanding of instructions, follow-up care, medications, Prescriptions given X 1. 22:18 Patient left the ED. cc3 Signatures: Emily Negro FNP-C FNP-Effie Melody SimmonsSweetie, RN RN lp1 Linda Valente cc3 Corrections: (The following items were deleted from the chart) 21:19 21:18 Reassessment: Patient appears in no apparent distress at this time. Patient cc3 and/or family updated on plan of care and expected duration. Pain level reassessed. Patient is alert, oriented x 3, equal unlabored respirations, skin warm/dry/pink. cc3
--- NOTE | 2019-02-24 22:05 | EDPHYS ---
Physician Documentation [facility] Name: Liseth Chow Age: 23 yrs Sex: Female : 1995 Arrival Date: 02/24/2019 Time: 19:55 Bed 18 Private MD: ED Physician David Gregg HPI: 02/24 21:34 This 23 yrs old Female presents to ER via Ambulatory with complaints of kb Vomiting/Diarrhea. 21:34 The patient presents to the emergency department with nausea, vomiting, diarrhea, kb abdominal pain. Onset: The symptoms/episode began/occurred last week. Possible causes: unknown. The symptoms are aggravated by nothing. The symptoms are alleviated by nothing. Associated signs and symptoms: Pertinent positives: abdominal pain, diarrhea, nausea, vomiting. Severity of symptoms: At their worst the symptoms were moderate in the emergency department the symptoms are unchanged. The patient has not experienced similar symptoms in the past. The patient has not recently seen a physician. Pt reports she was here yesterday for LLQ pain, nausea and diarrhea. States she was sent home on antibiotics. Comes back today because she is now vomiting and unable to tolerate food. Pain continues, diarrhea has improved. 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 - Social history:: Smoking status: Patient uses tobacco products, denies chronic smoking, but will smoke occasionally. - Ebola Screening: : No symptoms or risks identified at this time. ROS: 21:33 Constitutional: Negative for fever, chills, and weight loss, Cardiovascular: Negative kb for chest pain, palpitations, and edema, Respiratory: Negative for shortness of breath, cough, wheezing, and pleuritic chest pain, Back: Negative for injury and pain, MS/Extremity: Negative for injury and deformity, Skin: Negative for injury, rash, and discoloration, Neuro: Negative for headache, weakness, numbness, tingling, and seizure. 21:33 Abdomen/GI: Positive for abdominal pain, nausea, vomiting, and diarrhea. Exam: 21:33 Constitutional: This is a well developed, well nourished patient who is awake, alert, kb and in no acute distress. Head/Face: Normocephalic, atraumatic. Neck: Trachea midline, no thyromegaly or masses palpated, and no cervical lymphadenopathy. Supple, full range of motion without nuchal rigidity, or vertebral point tenderness. No Meningismus. Chest/axilla: Normal chest wall appearance and motion. Nontender with no deformity. No lesions are appreciated. Cardiovascular: Regular rate and rhythm with a normal S1 and S2. No gallops, murmurs, or rubs. Normal PMI, no JVD. No pulse deficits. Respiratory: Lungs have equal breath sounds bilaterally, clear to auscultation and percussion. No rales, rhonchi or wheezes noted. No increased work of breathing, no retractions or nasal flaring. Back: No spinal tenderness. No costovertebral tenderness. Full range of motion. Skin: Warm, dry with normal turgor. Normal color with no rashes, no lesions, and no evidence of cellulitis. MS/ Extremity: Pulses equal, no cyanosis. Neurovascular intact. Full, normal range of motion. Neuro: Awake and alert, GCS 15, oriented to person, place, time, and situation. Cranial nerves II-XII grossly intact. Motor strength 5/5 in all extremities. Sensory grossly intact. Cerebellar exam normal. Normal gait. 21:33 Abdomen/GI: Inspection: abdomen appears normal, Bowel sounds: normal, in all quadrants, Palpation: soft, in all quadrants, moderate abdominal tenderness, in the left lower quadrant. Vital Signs: 20:09 BP 132 / 76; Pulse 82; Resp 18; Temp 97.6(O); Pulse Ox 100% on R/A; Weight 61.23 kg lp1 (R); Height 5 ft. 1 in. (154.94 cm); Pain 6/10; 21:13 BP 124 / 72; Pulse 73; Resp 17 S; Pulse Ox 99% on R/A; cc3 22:00 BP 110 / 73; Pulse 82; Resp 16 S; Pulse Ox 100% on R/A; cc3 20:09 Body Mass Index 25.51 (61.23 kg, 154.94 cm) lp1 MDM: 20:13 Patient medically screened. kb 21:33 Data reviewed: vital signs, nurses notes. Data interpreted: Pulse oximetry: on room air kb is 99 %. Interpretation: normal. 21:58 Counseling: I had a detailed discussion with the patient and/or guardian regarding: the kb historical points, exam findings, and any diagnostic results supporting the discharge/admit diagnosis, lab results, the need for outpatient follow up, a family practitioner, to return to the emergency department if symptoms worsen or persist or if there are any questions or concerns that arise at home. 02/24 20:13 Order name: Basic Metabolic Panel; Complete Time: 21:21 kb 02/24 20:13 Order name: CBC with Diff kb 02/24 20:13 Order name: IV Saline Lock; Complete Time: 20:52 kb 02/24 20:13 Order name: Labs collected and sent; Complete Time: 20:52 kb 02/24 21:21 Order name: PO challenge; Complete Time: 21:33 kb Administered Medications: 20:45 Drug: NS 0.9% 1000 ml Route: IV; Rate: 1000 ml; Site: left antecubital; cc3 21:34 Follow up: Response: No adverse reaction; IV Status: Completed infusion; IV Intake: cc3 1000ml 20:45 Drug: TORadol - Ketorolac 15 mg Route: IVP; Site: left antecubital; cc3 21:34 Follow up: Response: No adverse reaction; Pain is decreased cc3 20:48 Drug: Zofran 4 mg Route: IVP; Site: left antecubital; cc3 21:34 Follow up: Response: No adverse reaction; Nausea is decreased cc3 Disposition: 02/25 01:08 Co-signature as Attending Physician, David Gregg MD I agree with the assessment and kdr plan of care. Disposition: 02/24/19 21:58 Discharged to Home. Impression: Nausea with vomiting, unspecified, Diarrhea, unspecified, Lower abdominal pain, unspecified. - Condition is Stable. - Discharge Instructions: Food Choices to Help Relieve Diarrhea, Adult, Nausea and Vomiting, Adult, [id number], Abdominal Pain, Adult, [id number], Diarrhea, Adult, [id number]. - Prescriptions for Zofran 4 mg Oral Tablet - take 1 tablet by ORAL route every 6 hours As needed; 20 tablet. - Medication Reconciliation Form, Thank You Letter, Antibiotic Education, Prescription Opioid Use, Work release form form. - Follow up: Emergency Department; When: As needed; Reason: Worsening of condition. Follow up: Private Physician; When: 2 - 3 days; Reason: Recheck today's complaints, Continuance of care, Re-evaluation by your physician. Signatures: Dispatcher [employer] EDMS MarkyLesterEmily, MARY JO JEANP-David Diaz MD MD [facility] Sweetie Lawrence RN RN lp1 Linda Valente cc3 Corrections: (The following items were deleted from the chart) 02/24 22:18 21:58 02/24/2019 21:58 Discharged to Home. Impression: Nausea with vomiting, cc3 unspecified; Diarrhea, unspecified; Lower abdominal pain, unspecified. Condition is Stable. Forms are Medication Reconciliation Form, Thank You Letter, Antibiotic Education, Prescription Opioid Use. Follow up: Emergency Department; When: As needed; Reason: Worsening of condition. Follow up: Private Physician; When: 2 - 3 days; Reason: Recheck today's complaints, Continuance of care, Re-evaluation by your physician. kb
== END 2019-02-24 22:18 | disposition home or self-care (01) ==
LOC: ER 19:54
DX: R19.7 Diarrhea, unspecified (principal); R10.30 Lower abdominal pain, unspecified; Z72.0 Tobacco use
CPT/HCPCS: 36415; 80048; 85025; 96361; 96374; 96375; 99284; J2405; J7030